=== PATIENT | female | born 1965 | race Caucasian/White ===

== ENCOUNTER 2016-11-16 19:16 | Emergency (ER) | payer OTHER ==
[~2016-11-16] VITALS: Ht 162.6 cm; Wt 72.3 kg
[~2016-11-16 19:16] MED LIST: ALBU17AE27 IH
[2016-11-16] MEDS ORDERED: IPRA4AER IH (19:29)
[2016-11-16] MEDS ORDERED: DEXAMETHASONE SOD PHOS 4 MG/ML 5 ML VIAL IM ONE (20:15)
[2016-11-16] MEDS ORDERED: MORPHINE SULFATE 4 MG/ML SYRINGE IM ONE ×2 (20:30→21:30)
[2016-11-16] MEDS ORDERED: LORazepam 2 MG/ML VIAL IM ONE ×2 (20:30→21:30)
[2016-11-16] MEDS ORDERED: KETOROLAC TROMETHAMINE 60 MG/2 ML VIAL IM ONE (21:30)
[2016-11-16 21:52] VITALS: BP 134/74
== END 2016-11-16 22:09 | disposition home or self-care (01) ==
LOC: EMS 19:17
DX: G89.29 Other chronic pain (principal); M54.16 Radiculopathy, lumbar region; J45.909 Unspecified asthma, uncomplicated
CPT/HCPCS: 96372; 99284; J1100; J1885; J2060; J2270

== ENCOUNTER 2017-07-26 06:49 | Emergency (ER) | payer OTHER ==
[~2017-07-26] VITALS: Ht 165.1 cm; Wt 86.4 kg
[~2017-07-26 06:49] MED LIST changes: +IPRA4AER IH
[2017-07-26] MEDS ORDERED: IBUP-1506 PO (07:01)
[2017-07-26] MEDS ORDERED: ALBUTEROL SULFATE HFA 90 MCG/PUFF 8 GM INHALER IH ONE (08:00)
[2017-07-26] MEDS ORDERED: IPRATROPIUM BROMIDE 0.5 MG/2.5 ML NEB SOLUTION NEB ONE (08:00)
[2017-07-26] MEDS ORDERED: ONDANSETRON HCL 4 MG TABLET PO ONE (08:00)
[2017-07-26] MEDS ORDERED: IBUPROFEN 600 MG TABLET PO ONE (08:00)
[2017-07-26] MEDS ORDERED: OSELTAMIVIR PHOSPHATE 75 MG CAPSULE PO ONE (08:00)
[2017-07-26] MEDS ORDERED: ALBUTEROL SULFATE 2.5 MG/0.5 ML NEB SOLUTION NEB ONE (08:00)
[2017-07-26 08:32] LABS: INFLUENZA TYPE A POSITIVE FOR TYPE A (NEGATIVE); INFLUENZA TYPE B NEGATIVE FOR TYPE B (NEGATIVE)
[2017-07-26 08:42] VITALS: BP 122/91
[2017-07-26] MEDS ORDERED: AZITHROMYCIN 250 MG TABLET PO ONE (08:45)
[2017-07-26] MEDS ORDERED: CefTRIAXone SODIUM 1 GM/VIAL IM ONE (08:45)
[2017-07-26] MEDS ORDERED: LIDOCAINE HCL/PF 1% 2 ML VIAL IM ONE (08:45)
== END 2017-07-26 09:05 | disposition home or self-care (01) ==
LOC: EMS 06:50
DX: J11.00 Influenza due to unidentified influenza virus with unspecified type of pneumonia (principal); J45.901 Unspecified asthma with (acute) exacerbation; R11.2 Nausea with vomiting, unspecified; J45.909 Unspecified asthma, uncomplicated
CPT/HCPCS: 71046; 87804; 94640; 96372; 99285; J0696; J3490; J7613; Q0162; J3535

== ENCOUNTER 2018-10-10 18:12 | Emergency (ER) | payer OTHER, MEDICAID ==
[~2018-10-10] VITALS: Ht 160 cm; Wt 57.3 kg
[~2018-10-10 18:12] MED LIST changes: +IBUP-1506 PO
[2018-10-10 20:42] LABS: INFLUENZA TYPE A NEGATIVE FOR TYPE A (NEGATIVE); INFLUENZA TYPE B NEGATIVE FOR TYPE B (NEGATIVE)
[2018-10-10] MEDS ORDERED: IPRATROPIUM BROMIDE 0.5 MG/2.5 ML NEB SOLUTION NEB ONE (22:45)
[2018-10-10] MEDS ORDERED: ALBUTEROL SULFATE 2.5 MG/0.5 ML NEB SOLUTION NEB ONE (22:45)
[2018-10-10 22:56] LABS: BASOPHILS % (AUTO) 0.6 % (0.0-2.0); HEMATOCRIT 36.8 % (36-46); HEMOGLOBIN 12.2 g/dL (12.0-16.0); LYMPHOCYTES # (AUTO) 2.6 K/uL (1.0-4.8); LYMPHOCYTES % (AUTO) 24.9 % (22.0-44.0); MEAN CORPUSCULAR HEMOGLOBIN 28.2 pg (26.0-34.0); MEAN CORPUSCULAR VOLUME 86 fL (80-100); MONOCYTES # (AUTO) 0.8 K/uL (0.1-1.0); MONOCYTES % (AUTO) 7.9 % (2.0-9.0); NEUTROPHILS # (AUTO) 6.7 K/uL (1.8-7.7); NEUTROPHILS % (AUTO) 63.6 % (40.0-70.0); PLATELET COUNT (AUTO) 227 K/uL (150-450); RED BLOOD CELL COUNT(AUTO) 4.31 MIL/uL (4.00-5.20); RED CELL DISTRIBUTION WIDTH 13.8 % (11.5-14.5)
[2018-10-10] MEDS ORDERED: 0.9% SODIUM CHLORIDE 5 ML NEB SOLUTION NEB ONE (22:59)
[2018-10-10] MEDS ORDERED: KETOROLAC TROMETHAMINE 30 MG/ML VIAL IVP ONE (23:00)
[2018-10-10] MEDS ORDERED: SODIUM CHLORIDE 0.9% 1,000 ML IV ONE (23:00)
[2018-10-10 23:14] LABS: ANION GAP 11 mmol/L (8-16); CALCIUM, TOTAL 9.6 mg/dL (8.8-10.5); CARBON DIOXIDE 29 mmol/L (22-29); CHLORIDE 99 mmol/L (98-107); CREATININE 0.63 mg/dL (0.60-1.30); GLOMERULAR FILTR. RATE CALC > 60 mL/min (>60); GLUCOSE,RANDOM 103 mg/dL (70-110); POTASSIUM 3.9 mmol/L (3.5-5.1); SODIUM SERUM 139 mmol/L (136-145); UREA NITROGEN, BLOOD 9 mg/dL (7-18)
[2018-10-10 23:19] LABS: ALANINE AMINOTRANSFERASE 14 U/L (12-78); ALBUMIN 3.8 g/dL (3.4-5.0); ALKALINE PHOSPHATASE 94 U/L (46-116); ASPARTATE AMINOTRANSFERASE 17 U/L (15-37); BILIRUBIN,TOTAL 0.8 mg/dL (0.1-1.0); TOTAL PROTEIN, SERUM 8.1 g/dL (6.4-8.2)
[2018-10-11 01:30] VITALS: BP 126/62
[2018-10-11] MEDS ORDERED: AZITHROMYCIN 250 MG TABLET PO ONE (01:30)
== END 2018-10-11 02:35 | disposition home or self-care (01) ==
LOC: EMS 18:13
DX: J18.9 Pneumonia, unspecified organism (principal); J45.909 Unspecified asthma, uncomplicated
CPT/HCPCS: 36415; 71046; 80053; 84484; 85025; 87430; 87804; 93005; 94640; 96374; 99284; J1885; J7030